=== PATIENT | female | born 1960 | race African-American/Black ===

== ENCOUNTER 2016-02-27 15:01 | Inpatient (IN) | payer MEDICARE, MEDICAID ==
[~2016-02-27] VITALS: Ht 160 cm; Wt 91.6 kg
[2016-02-27] MEDS ORDERED: SODIUM CHLORIDE 0.9% 500 ML IVB ONE (15:52)
[2016-02-27] MEDS ORDERED: ONDANSETRON HCL 4 MG/2 ML VIAL IV ONE (16:00)
[2016-02-27] MEDS ORDERED: HYDROmorphone HCL 2 MG/ML VL IV ONE (16:00)
[2016-02-27 16:12] LABS: Urine RBC None Seen /hpf (0 - 4)
[2016-02-27 16:54] LABS: Amylase 51 U/L (25-115)
[2016-02-27 16:54] LABS: Urine Bilirubin Negative (Negative); Urine Blood Negative /uL (Negative); Urine Glucose Normal (Normal); Urine Ketone Negative (Negative); Urine Nitrite Negative (Negative); Urine Squamous Epithelial Cell FEW /hpf (<5); Urine Urobilinogen Normal (Negative); Urine pH 5.5 (5.0-8.0)
[2016-02-27 17:15] LABS: Urine Color Straw (Yellow)
[2016-02-27 17:19] LABS: Basophils # (auto) 0 uL; Basophils % (auto) 0.3 % (0.0-2.0); Eosinophils # (auto) 0.2 uL; Eosinophils % (auto) 3.1 % (0.0-7.0); Hematocrit 32.4 % (36.0-46.0); Hemoglobin 10.3 g/dL (12.2-16.2); Lymphocytes # (auto) 2.5 uL; Lymphocytes % (auto) 48.2 % (10.0-50.0); Mean Corpuscular Hemoglobin 28.2 pg (28.0-32.0); Mean Corpuscular Hgb Conc. 31.9 g/dL (32.0-36.0); Mean Corpuscular Volume 88.3 fL (80.0-100.0); Mean Platelet Volume 8.6 fL (7.4-10.4); Monocytes # (auto) 0.1 uL; Monocytes % (auto) 2.3 % (0.0-12.0); Neutrophils # (auto) 2.4 uL; Neutrophils % (auto) 46.1 % (37.0-80.0); Platelet Count (auto) 246 10^3/uL (140-450); Red Cell Distribution Width 13.9 % (11.6-16.0); White Blood Cell 5.2 10^3/uL (4.4-10.8)
[2016-02-27 17:21] LABS: Albumin 3.8 g/dL (3.4-5.0); BUN/Creatinine Ratio 16.3; Calcium 8.2 mg/dL (8.5-10.1); Potassium 3.6 mmol/L (3.5-5.1)
[2016-02-27 17:24] LABS: Bilirubin, Total 0.3 mg/dL (0.2-1.0); Total Protein 7.1 g/dL (6.4-8.2)
[2016-02-27] MEDS: SODIUM CHLORIDE 0.9% 1,000 ML IV SCH (18:52)
[2016-02-27] MEDS ORDERED: NITROGLYCERIN 0.4 MG SL TAB SL PRN (19:00)
[2016-02-27] MEDS ORDERED: DEXTROSE (50%) 50ML SYRG IV PRN (19:00)
[2016-02-27] MEDS ORDERED: MORPHINE SULF INJ 2 MG/ML SYRINGE 1ML IV PRN (19:00)
[2016-02-27] MEDS ORDERED: cefTRIAXone 1GM/50ML D5W 50 ML IV ONE (19:00)
[2016-02-27] MEDS ORDERED: FAMOTIDINE (10MG/ML) 2ML VL IV ONE (19:45)
[2016-02-27 21:45] VITALS: BP 115/76
[2016-02-27] MEDS: metroNIDAZOLE 500MG/100ML 100 ML IV SCH (22:10)
[2016-02-27] MEDS: MORPHINE SULF INJ 2 MG/ML SYRINGE 1ML IV PRN (22:44)
[2016-02-27] MEDS: ACCU-CHEK COMFORT CURVE STRIP VI SCH (23:52)
[2016-02-27] MEDS: InsuLIN REG 1unit/0.01ml Soln (100units/ml) SC SCH (23:52)
[2016-02-28] MEDS: SODIUM CHLORIDE 0.9% 1,000 ML IV SCH ×4 (02:41→22:51)
[2016-02-28] MEDS: MORPHINE SULF INJ 2 MG/ML SYRINGE 1ML IV PRN ×3 (04:48→23:23)
[2016-02-28] MEDS: metroNIDAZOLE 500MG/100ML 100 ML IV SCH ×3 (05:09→21:25)
[2016-02-28] MEDS: InsuLIN REG 1unit/0.01ml Soln (100units/ml) SC SCH ×4 (05:25→23:33)
[2016-02-28] MEDS: ACCU-CHEK COMFORT CURVE STRIP VI SCH ×4 (05:25→23:33)
[2016-02-28 05:31] VITALS: BP 113/78
[2016-02-28 06:20] LABS: Basophils # (auto) 0 uL; Basophils % (auto) 0.5 % (0.0-2.0); Eosinophils # (auto) 0.1 uL; Eosinophils % (auto) 3.3 % (0.0-7.0); Hematocrit 33.4 % (36.0-46.0); Hemoglobin 10.7 g/dL (12.2-16.2); Lymphocytes # (auto) 2.1 uL; Lymphocytes % (auto) 51.7 % (10.0-50.0); Mean Corpuscular Hemoglobin 28.6 pg (28.0-32.0); Mean Corpuscular Volume 89.1 fL (80.0-100.0); Mean Platelet Volume 8.2 fL (7.4-10.4); Monocytes # (auto) 0.2 uL; Monocytes % (auto) 4.1 % (0.0-12.0); Neutrophils # (auto) 1.7 uL; Neutrophils % (auto) 40.4 % (37.0-80.0); Platelet Count (auto) 246 10^3/uL (140-450); Red Cell Distribution Width 13.8 % (11.6-16.0); White Blood Cell 4.1 10^3/uL (4.4-10.8)
[2016-02-28 07:00] LABS: Albumin 3.6 g/dL (3.4-5.0); BUN/Creatinine Ratio 14.6; Bilirubin, Total 0.2 mg/dL (0.2-1.0); Calcium 8.2 mg/dL (8.5-10.1); Total Protein 6.8 g/dL (6.4-8.2)
[2016-02-28] MEDS: MORPHINE SULFATE 4 MG/ML SYRG IV PRN ×3 (07:20→15:29)
[2016-02-28 09:00] VITALS: BP 105/75
[2016-02-28] MEDS: FAMOTIDINE (10MG/ML) 2ML VL IV SCH ×2 (10:08→21:25)
[2016-02-28] MEDS: cefTRIAXone 1GM/50ML D5W 50 ML IV SCH (10:11)
[2016-02-28] MEDS ORDERED: GASTROGRAFIN 30 ML SOL ONE (12:44)
[2016-02-28 13:00] VITALS: BP 129/81
[2016-02-28] MEDS ORDERED: IOHEXOL 300 MG/ML 100ML BOTTLE IJ ONE (14:50)
[2016-02-28 16:45] VITALS: BP 124/70
[2016-02-28 22:00] VITALS: BP 107/52
[2016-02-28] MEDS: LORazepam 2MG/ML-1ML VIAL IV PRN (23:23)
[2016-02-29] MEDS: PROMETHAZINE HCL 25 MG/ML 1ML IV PRN ×2 (03:42→18:48)
[2016-02-29] MEDS: MORPHINE SULF INJ 2 MG/ML SYRINGE 1ML IV PRN ×4 (03:42→17:01)
[2016-02-29] MEDS: SODIUM CHLORIDE 0.9% 1,000 ML IV SCH ×3 (04:12→17:33)
[2016-02-29] MEDS: ACCU-CHEK COMFORT CURVE STRIP VI SCH ×3 (05:11→18:00)
[2016-02-29] MEDS: InsuLIN REG 1unit/0.01ml Soln (100units/ml) SC SCH ×3 (05:11→18:00)
[2016-02-29] MEDS: metroNIDAZOLE 500MG/100ML 100 ML IV SCH ×3 (05:11→21:01)
[2016-02-29 05:49] VITALS: BP 120/63
[2016-02-29 09:00] VITALS: BP 130/71
[2016-02-29] MEDS ORDERED: DIPHENOXYLATE W/ATROPINE 2.5 MG TAB PO PRN ×2 (09:30→09:40)
[2016-02-29] MEDS: FAMOTIDINE (10MG/ML) 2ML VL IV SCH ×2 (09:32→20:59)
[2016-02-29] MEDS: cefTRIAXone 1GM/50ML D5W 50 ML IV SCH (09:37)
[2016-02-29] MEDS ORDERED: GOLYTELY 4L KIT PO ONE (13:00)
[2016-02-29 13:49] VITALS: BP 87/66
[2016-02-29 17:23] VITALS: BP 129/95
[2016-02-29] MEDS: MORPHINE SULFATE 4 MG/ML SYRG IV PRN (20:59)
[2016-02-29] MEDS: LORazepam 2MG/ML-1ML VIAL IV PRN (21:10)
[2016-02-29 22:12] VITALS: BP 154/96
[2016-03-01] MEDS: ACCU-CHEK COMFORT CURVE STRIP VI SCH ×3 (00:23→11:22)
[2016-03-01] MEDS: SODIUM CHLORIDE 0.9% 1,000 ML IV SCH ×3 (00:23→13:32)
[2016-03-01] MEDS: MORPHINE SULFATE 4 MG/ML SYRG IV PRN ×4 (00:57→13:34)
[2016-03-01] MEDS: LORazepam 2MG/ML-1ML VIAL IV PRN (03:46)
[2016-03-01 05:29] VITALS: BP 149/90
[2016-03-01] MEDS: metroNIDAZOLE 500MG/100ML 100 ML IV SCH (05:49)
[2016-03-01] MEDS: InsuLIN REG 1unit/0.01ml Soln (100units/ml) SC SCH ×3 (05:52→11:21)
[2016-03-01 06:14] LABS: Basophils # (auto) 0 uL; Basophils % (auto) 0.6 % (0.0-2.0); Eosinophils # (auto) 0.1 uL; Eosinophils % (auto) 2.7 % (0.0-7.0); Hematocrit 32.7 % (36.0-46.0); Hemoglobin 10.5 g/dL (12.2-16.2); Lymphocytes # (auto) 1.8 uL; Lymphocytes % (auto) 48.5 % (10.0-50.0); Mean Corpuscular Hemoglobin 28.5 pg (28.0-32.0); Mean Corpuscular Hgb Conc. 32.1 g/dL (32.0-36.0); Mean Corpuscular Volume 88.9 fL (80.0-100.0); Mean Platelet Volume 8.4 fL (7.4-10.4); Monocytes # (auto) 0.2 uL; Monocytes % (auto) 4.4 % (0.0-12.0); Neutrophils # (auto) 1.7 uL; Neutrophils % (auto) 43.8 % (37.0-80.0); Platelet Count (auto) 237 10^3/uL (140-450); Red Cell Distribution Width 13.5 % (11.6-16.0); White Blood Cell 3.8 10^3/uL (4.4-10.8)
[2016-03-01 06:21] LABS: INR 1.05 (0.9-1.15); Partial Thromboplastin Time 25.4 sec (22.64-33.71); Prothrombin Time 10.8 sec (9.37-12.3)
[2016-03-01 06:36] LABS: BUN/Creatinine Ratio 6.9; Calcium 8.2 mg/dL (8.5-10.1); Potassium 3.4 mmol/L (3.5-5.1)
[2016-03-01] MEDS ORDERED: SODIUM CHLORIDE LOCK 10 ML ONE (08:07)
[2016-03-01] MEDS ORDERED: diphenhdrAMINE HCL 50 MG/1 ML VL ONE (08:08)
[2016-03-01 08:53] VITALS: BP 127/83
[2016-03-01] MEDS: cefTRIAXone 1GM/50ML D5W 50 ML IV SCH (09:00)
[2016-03-01] MEDS: FAMOTIDINE (10MG/ML) 2ML VL IV SCH (09:04)
[2016-03-01] MEDS: MIDAZOLAM HCL 5 MG/ML-1ML VIAL ONE ×4 (12:01→12:14)
[2016-03-01] MEDS: fentaNYL CITRATE 100 MCG/2 ML VL ONE ×4 (12:01→12:14)
[2016-03-01 15:15] VITALS: BP 127/83
[2016-03-01] MEDS ORDERED: CHOLESTYRAMINE 4 GM POWDER PO SCH (23:00)
== END 2016-03-01 15:15 | disposition home or self-care (01) | DRG 391 ==
LOC: EDUNIT# 15:01 → ER 15:16 → TELE 15:17 → TELE-CENTR 21:44 → CENTRAL 03-01 10:48
PROVIDERS: ADMIT Internal Medicine; ATTEND Family Medicine
PROC: 0DBE8ZX Excision of Large Intestine, Via Natural or Artificial Opening Endoscopic, Diagnostic (ICD-10-PCS; principal; 2016-03-01 11:55)
DX: K52.9 Noninfective gastroenteritis and colitis, unspecified (principal); K85.90 Acute pancreatitis without necrosis or infection, unspecified; N39.0 Urinary tract infection, site not specified; K42.9 Umbilical hernia without obstruction or gangrene; K57.30 Diverticulosis of large intestine without perforation or abscess without bleeding; R16.0 Hepatomegaly, not elsewhere classified; I48.91 Unspecified atrial fibrillation; K76.9 Liver disease, unspecified; M19.90 Unspecified osteoarthritis, unspecified site; M51.36 Other intervertebral disc degeneration, lumbar region; I10 Essential (primary) hypertension; G89.29 Other chronic pain; E11.9 Type 2 diabetes mellitus without complications; E66.01 Morbid (severe) obesity due to excess calories; F17.210 Nicotine dependence, cigarettes, uncomplicated; F41.9 Anxiety disorder, unspecified; M25.512 Pain in left shoulder; Z98.890 Other specified postprocedural states; Z90.710 Acquired absence of both cervix and uterus; Z90.49 Acquired absence of other specified parts of digestive tract; Z88.2 Allergy status to sulfonamides; Z88.8 Allergy status to other drugs, medicaments and biological substances; Z68.35 Body mass index [BMI] 35.0-35.9, adult
CPT/HCPCS: 36415; 45380; 71010; 74176; 74177; 76705; 80048; 80053; 80061; 81001; 82105; 82150; 82270; 82378; 82962; 83036; 83690; 84484; 84702; 85025; 85049; 85610; 85652; 85730; 86141; 87045; 87081; 87493; 87899; 93005; 94761; 96361; 96365; 96375; G0434; J0696; J2250; J2405; J3490